=== PATIENT | female | born 1975 | race Caucasian/White ===

== ENCOUNTER 2017-12-06 17:12 | Inpatient (IN) | payer MEDICAID ==
[2017-12-06] MEDS ORDERED: TORADOL 30 MG VIAL IVP ONE (17:53)
[2017-12-06] MEDS ORDERED: PEPCID 20 MG IV PREMIX* 20 MG/50 ML BAG IV ONE ×2 (17:53→18:23)
--- NOTE | 2017-12-06 17:54 | ED.ABDFE ---
HPI - Time seen Time seen: 12:46 - PCP Primary Care Physician: RONIT - HPI Comment HPI Comment: HISTORY BELOW. - Complaint Chief Complaint Doctors Comments: EPIGASTRIC PAIN GOING TO THE BACK WITH N/V AND FEVER. HISTORY GALL STONE. CHEST PAIN RT CHEST GOING TO RT SHOULDER. PAIN NEW AND SEVERE. Chief Complaint:: PT. C/O SEVERE EPIGASTRIC PAIN THAT RADIATES THROUGH TO BACK. PT. ALSO C/O NAUSEA. - Nurses notes reviewed Nurses Notes Review: Yes - Source History Provided: Patient - Mode of arrival Mode of Arrival: Wheelchair - Timing Onset of Chief Complaint: 12/05/17 - Duration Duration: Days - Location Location: Epigastric - Severity Severity: Severe - Quality Quality: Sharp - Context Onset: Suddenly History of: Similar pain (dx) - Modifying Worsening Factors: Nothing Improving Factors: Nothing - Associated signs and symptoms Associated Signs and Symptoms: Nausea, Vomiting PMH - PMH Past Medical History: No Past Surgical History: Yes Surgical History: [employer] Surgery, Tonsillectomy Past Surgical History Comment: TUBAL LIGATION - Family History History of Family Medical Conditions: No - Social History Does patient currently use any type of tobacco product: Yes Have you used tobacco products in the last 12 months: Yes Type of Tobacco Use: Cigarettes Does any household member use tobacco: No Alcohol Use: None Do you use any recreational Drugs:: Yes (MARIJUANA) Lives With: Family Lives Where: Home - infectious screening In the last 2 months have you had wt loss of >10#?: NO Have you had fever, night sweats or hemotysis?: No Have you traveled outside the country in the last 6 months?: No Isolation: Standard ROS - Review of Systems Constitutional: No Symptoms Reported Eyes: No Symptoms Reported ENTM: No Symptoms Reported Respiratoy: Non-Productive Cough, Short of Breath Cardiovascular: No Symptoms Reported Gastrointestinal/Abdominal: Abdominal Pain (EPIGSTRIC), Nausea, Vomiting Genitourinary: No Symptoms Reported. negative: Dysuria, Frequency, Hematuria Neurological: No Symptoms Reported Musculoskeletal: Back Pain, Right, Shoulder Integumentary: No Symptoms Reported Hematologic/Lymphatic: No Symptoms Reported Endocrine: No Symptoms Reported All Other Systems: Reviewed and Negative PE - Vital Signs Vitals: Temperature 99.4 F Pulse Rate 114 Respiratory Rate 22 Blood Pressure 156/104 O2 Sat by Pulse Oximetry 100 - General Limitations: No Limitations General Appearance: Alert - Head Head Exam: Normal Inspection - Eyes Eye exam: Normal Appearance - ENT ENT Exam: Normal External Ear Exam - Neck Neck Exam: Trachea Midline - Chest Chest Inspection: Symmetric Chest Wall Rise - Respiratory Respiratory Exam: Normal Lung Sounds Bilat, Chest Wall Tenderness (RT CHEST WALL SORE. RT SHOULDER SORE) Respiratory Exam: Bilateral Clear to Auscultation - Cardiovascular Cardiovascular Exam: Regular Rate, Normal Rhythm, Normal Heart Sounds - Abdominal Exam Abdominal Exam: Normal Bowel Sounds, Soft, Tenderness Abdominal Tenderness: Epigastrium - Rectal Rectal Exam: Deferred - Back Back Exam: (R) CVA Tenderness - Extremeties Extremities Exam: Tenderness (RT SHOULDER SORENESS ON PALPATION.) - External Exam: Female: Deferred : Speculum Exam (Female): Deferred : Bimanual Exam (female): Deferred - Neurologic Neurological Exam: Alert, Oriented X3 - Psychiatric Psychiatric Exam: Anxious - Skin Skin Exam: Normal Color MDM - Additional Information Obtained From Additional information provided by: Family - Differential Diagnosis Differential Diagnosis- Considerations may include:: Angina/UT, Cholcystitis, Cholelethiasis, Pancreatitis, Urinary tract infection, Urolithiasis Other differential diagnosis: PULMONARY EMBOLISM Course - Treatment Treatment: SEE ORDERS. IV FLUIDS, IVPAIN MED AND IV ANTIBIOTIC IN ED. - Education/Counseling Education/Counseling: Patient, Education Educated On: Treatment, Diagnosis, Needs for Follow Up ROR - Labs Reviewed Laboratory Results Reviewed?: Yes Result Diagrams: 12/07/17 05:56 12/07/17 05:56 - XRAY XRAY Interpreted by: Radiologist XRAY Findings: REPORT DISCUSS WITH PATIENT. - Diagnosis Discharge Problem: Cholecystitis, Chest pain UTI (urinary tract infection) Qualifiers: Urinary tract infection type: site unspecified Hematuria presence: without hematuria Qualified Code(s): N39.0 - Urinary tract infection, site not specified - Discharge Plan Disposition: HOME, SELF-CARE Condition: Stable - Follow ups/Referrals - Instructions
[2017-12-06 18:14] LABS: BASOPHILS # (AUTO) 0.1 X10^3/uL (0.0-0.1); BASOPHILS % (AUTO) 0.5 % (0.2-1.0); EOSINOPHILS # (AUTO) 0.1 x10^3/uL (0.0-0.2); EOSINOPHILS % (AUTO) 0.9 % (0.9-2.9); HEMATOCRIT 39.4 % (36.0-47.0); HEMOGLOBIN 13.2 g/dL (12.0-16.0); LYMPHOCYTES # (AUTO) 1.7 X10^3/uL (1.3-2.9); LYMPHOCYTES % (AUTO) 13.9 % (21.0-51.0); MEAN CORPUSCULAR HEMOGLOBIN 28.4 pg (27.0-34.0); MEAN CORPUSCULAR HGB CONC 33.5 g/dL (33.0-35.0); MEAN CORPUSCULAR VOLUME 84.6 fL (80.0-100.0); MEAN PLATELET VOLUME 8.1 fL (7.4-11.0); MONOCYTES # (AUTO) 0.9 x10^3/uL (0.3-0.8); MONOCYTES % (AUTO) 7.3 % (0.0-13.0); NEUTROPHILS # (AUTO) 9.3 x10^3/uL (2.2-4.8); NEUTROPHILS % (AUTO) 77.4 % (42.0-75.0); PLATELET COUNT 245 X10^3/uL (150.0-450.0); RED BLOOD COUNT 4.66 X10^6/uL (3.5-5.4); RED CELL DISTRIBUTION WIDTH 14.2 % (11.6-16.5); WHITE BLOOD COUNT 11.9 X10^3/uL (3.6-10.0)
[2017-12-06] MEDS ORDERED: TORADOL 30 MG VIAL ONE (18:23)
[2017-12-06 18:27] LABS: BLOOD UREA NITROGEN 10 mg/dL (7-18); CALCIUM 9.2 mg/dL (8.5-10.1); CARBON DIOXIDE 31.4 mmol/L (21-32); CHLORIDE 99 mmol/L (98-107); CREATININE 0.62 mg/dL (0.55-1.02); SODIUM 136 mmol/L (136-145); TROPONIN I < 0.02 ng/mL (0-1.5); eGFR BLACK RACES > 60 (>60); eGFR NON BLACK RACES > 60 (>60)
[2017-12-06] MEDS ORDERED: ZOFRAN INJ 4 MG VIAL ONE (18:30)
[2017-12-06 18:31] LABS: ALANINE AMINOTRANSFERASE 128 Units/L (12-78); ALBUMIN 3.7 g/dL (3.4-5.0); ALKALINE PHOSPHATASE 120 Units/L (46-116); AMYLASE 41 Units/L (25-115); ASPARTATE AMINO TRANSFERASE 190 Units/L (15-37); CKMB % 2.4 % (<4); CREATINE KINASE 55 Units/L (26-192); CREATINE KINASE MB 1.3 ng/mL (0-4.0); LIPASE 130 Units/L (73-393); TOTAL PROTEIN 7.9 g/dL (6.4-8.2)
[2017-12-06] MEDS ORDERED: ZOFRAN INJ 4 MG VIAL IVP ONE (18:33)
[2017-12-06] MEDS: NS 1000 ML 1,000 ML IV SCH (18:34)
--- NOTE | 2017-12-06 21:15 | CT ---
HISTORY: Severe epigastric pain that radiates to the back. Study: CT chest with contrast Comparison: Chest x-ray dated same day. Technique: Multiple axial images of the chest were obtained from the thoracic inlet to the upper abdo men after the administration of IV contrast. MIP images were obtained. Dose reduction techniques incl uding Automated Exposure Control (AEC) and adjustment of mA and kV were utilized. Findings: Study slightly limited secondary to lung apices off the field of view. The mediastinum does not demonstrate significant pathological lymphadenopathy. There is no paracardi al effusion observed. The thoracic aorta is normal in its contour without evidence for aneurysmal di latation. The central pulmonary arterial system does not demonstrate central filling defects to sugg est pulmonary emboli. No obvious focal consolidation, pleural effusion, pneumothorax, pulmonary nodule, or mass. Marked thi ckening of the gallbladder wall with associated pericholecystic fluid. This most likely represents ac [place] cholecystitis. No obvious gallstones are seen. Remaining upper abdominal structures are unremarka ble. The osseous structures appear normal for age. IMPRESSION: 1. No CT evidence of acute thoracic pathology or pulmonary embolus. 2. Constellation of findings likely representing acute cholecystitis. Suggest right upper quadrant ul trasound for further characterization. Reported By:
--- NOTE | 2017-12-06 21:34 | RAD ---
HISTORY: 42-year-old female with chest pain. Study: Frontal view of the chest. Comparison: CTA chest this date. Findings: The trachea is midline. The cardiac silhouette is unremarkable. The lungs are clear without focal c onsolidation, effusion or pneumothorax. Soft tissues are unremarkable. Osseous structures are unrema rkable. IMPRESSION: 1. No acute cardiopulmonary disease. Reported By:
[2017-12-06] MEDS: DEMEROL INJ IVP PRN (22:08)
[2017-12-06] MEDS: PHENERGAN INJ 25 MG IV PRN (22:08)
[2017-12-06] MEDS ORDERED: PEPCID 20 MG IV PREMIX* 20 MG/50 ML BAG IV PRN (22:15)
[2017-12-06] MEDS: ZOSYN VIAL 3.375 GM 3.375 GM in NS 100 ML IV + SPIKE MINIBAG* 100 ML IV SCH (23:30)
--- NOTE | 2017-12-07 | US ---
HISTORY: Epigastric pain Study: Right upper quadrant abdominal ultrasound Comparison: CT chest from same day Technique: Multiple matias scale and color flow Doppler images of the right upper quadrant were obtaine d. Findings: The liver is normal in size and echotexture without visualized focal lesion. The main portal vein is patent with antegrade flow. There is a large shadowing stone within the gallbladder, which demonstrates moderate wall thickening/ edema and trace pericholecystic fluid. The common bile duct is normal in caliber, measuring 6 mm. A p ositive sonographic Dunn sign was elicited. The right kidney measures 4.7 x 6.1 x 11.7 cm and is normal in echogenicity without nephrolithiasis, mass or hydronephrosis. IMPRESSION: Acute cholecystitis. Reported By:
[2017-12-07] MEDS: PHENERGAN INJ 25 MG IV PRN (02:09)
[2017-12-07] MEDS: DEMEROL INJ IVP PRN ×4 (02:09→21:46)
[2017-12-07] MEDS: NS 1000 ML 1,000 ML IV SCH ×3 (02:10→20:09)
[2017-12-07] MEDS: ZOSYN VIAL 3.375 GM 3.375 GM in NS 100 ML IV + SPIKE MINIBAG* 100 ML IV SCH ×3 (05:41→20:59)
[2017-12-07 06:40] LABS: BASOPHILS % (AUTO) 0.2 % (0.2-1.0); EOSINOPHILS % (AUTO) 0.4 % (0.9-2.9); HEMATOCRIT 39.7 % (36.0-47.0); HEMOGLOBIN 13.2 g/dL (12.0-16.0); LYMPHOCYTES % (AUTO) 8.6 % (21.0-51.0); MEAN CORPUSCULAR HEMOGLOBIN 28.5 pg (27.0-34.0); MEAN CORPUSCULAR HGB CONC 33.2 g/dL (33.0-35.0); MEAN CORPUSCULAR VOLUME 85.9 fL (80.0-100.0); MEAN PLATELET VOLUME 8.9 fL (7.4-11.0); NEUTROPHILS # (AUTO) 9.8 x10^3/uL (2.2-4.8); NEUTROPHILS % (AUTO) 82.8 % (42.0-75.0); PLATELET COUNT 223 X10^3/uL (150.0-450.0); RED BLOOD COUNT 4.62 X10^6/uL (3.5-5.4); WHITE BLOOD COUNT 11.9 X10^3/uL (3.6-10.0)
[2017-12-07 06:42] LABS: ALANINE AMINOTRANSFERASE 276 Units/L (12-78); ALBUMIN 3.4 g/dL (3.4-5.0); ALKALINE PHOSPHATASE 162 Units/L (46-116); AMYLASE 40 Units/L (25-115); ASPARTATE AMINO TRANSFERASE 295 Units/L (15-37); BLOOD UREA NITROGEN 12 mg/dL (7-18); CALCIUM 9.1 mg/dL (8.5-10.1); CARBON DIOXIDE 29.9 mmol/L (21-32); CHLORIDE 100 mmol/L (98-107); CREATININE 0.77 mg/dL (0.55-1.02); LIPASE 136 Units/L (73-393); SODIUM 136 mmol/L (136-145); TOTAL PROTEIN 7.6 g/dL (6.4-8.2); eGFR BLACK RACES > 60 (>60); eGFR NON BLACK RACES > 60 (>60)
[2017-12-07] MEDS ORDERED: DILAUDID INJ IVP ONE (08:19)
[2017-12-07] MEDS ORDERED: DILAUDID INJ ONE ×3 (08:48→14:38)
[2017-12-07] MEDS ORDERED: LR 1000 ML IV 1,000 ML IV ONE ×2 (09:10→13:05)
[2017-12-07 09:31] LABS: BILIRUBIN,URINE NEGATIVE (NEGATIVE); BLOOD/HEMOGLOBIN,URINE 2+ (NEGATIVE); GLUCOSE, URINE NEGATIVE (NEGATIVE); KETONES,URINE NEGATIVE (NEGATIVE); LEUKOCYTE ESTERASE ,URINE 3+ (NEGATIVE); NITRITES,URINE POSITIVE (NEGATIVE); PROTEIN,URINE 2+ (NEGATIVE); UROBILINOGEN,URINE NORMAL (NORMAL)
[2017-12-07 09:39] LABS: APPEARANCE,URINE CLOUDY (CLEAR); COLOR,URINE DARK YELLOW (YELLOW)
[2017-12-07 09:40] LABS: BACTERIA,URINE 1+ /HPF (NEGATIVE); SQUAMOUS EPITHELIAL CELL,UR FEW /HPF (NEGATIVE); TRICHOMONAS,URINE FEW /HPF (NEGATIVE)
[2017-12-07] MEDS ORDERED: XYLOCAINE 1% and EPINEPHRINE 1:100,000 ONE (10:23)
[2017-12-07] MEDS ORDERED: MARCAINE 0.25% INJ ONE (10:24)
--- NOTE | 2017-12-07 10:37 | DR.H&P ---
H&P - History & Physical for Day of: H&P Date: 12/07/17 - Chief Complaint Chief Complaint: abdominal pain and chest pain, radiates to mid back - Allergies Allergies/Adverse Reactions: Allergies Allergy/AdvReac Type Severity Reaction Status Date / Time latex Allergy Verified 12/06/17 17:53 strawberry Allergy Verified 12/06/17 17:53 venlafaxine [From Effexor] Allergy Verified 12/06/17 17:53 - History of Present Illness History of Present Illness: 42F ER ADMISSION AFTER PRESENTING WITH CO CHEST PAIN RADIATES TO MID BACK AND SOB, PT HAD CTA CHEST AND ADMISSION LABS ED. PT HAS ACTUE CHOLECYSTITIS. PT ADMITTED FOR SURGICAL CONSULT AND PAIN CONTROL. PT DENIES ANY PMH, HTN OR DM - Past Medical History Past Medical History: denies: COPD, Coronary Artery Disease, Hypertension - Past Surgical History Surgical History: MILL HELPER Surgery, Tonsillectomy - Social History Does patient currently use any type of tobacco product: Yes Have you used tobacco products in the last 12 months: Yes Type of Tobacco Use: Cigarettes Does any household member use tobacco: No Alcohol Use: None Drug Use: Marijuana - Medications Home Medications: NK [NK] 12/07/17 [History Confirmed 12/07/17] - Review of Systems Constitutional: Fever, Chills Eyes: No Symptoms Reported ENT: No Symptoms Reported Respiratory: Shortness of Breath Cardiovascular: Chest Pain Gastrointestinal: Nausea, Abdominal Pain Genitourinary: No Symptoms Reported Musculoskeletal: Back Pain Skin: No Symptoms Reported Neurological: No Symptoms Reported - Physical Exam Vital Signs: Temperature 99.2 F Pulse Rate [Right] 122 Pulse Rate 114 Respiratory Rate 20 Blood Pressure [Left Arm] 158/92 Blood Pressure 156/104 O2 Sat by Pulse Oximetry 98 Oriented: Normal Eyes: Normal Ear: Normal Nose: Normal Throat: Normal Respiratory: Clear Throughout Cardiovascular: Normal : Normal Auscultation: Bowel Sounds: Normal Palpation: Normal Tenderness: RUQ, Epigastric Skin: Normal Musculoskeletal: Normal Psychiatric: Anxiety Speech Pattern: Clear, Appropriate - Assessment/Plan (1) Acute cholecystitis Status: Acute Plan: ADMIT, IV ATBX, PAIN AND NAUSEA CONTROL. NPO, SURGICAL CONSULT
[2017-12-07] MEDS ORDERED: FENTANYL INJ 250 mcg ONE (10:50)
[2017-12-07] MEDS ORDERED: NS IRRIGATION 3000 ML 3,000 ML IR ONE (11:15)
[2017-12-07] MEDS ORDERED: NS IRRIGATION 1000 ML 500 ML IR ONE (12:45)
[2017-12-07] MEDS ORDERED: NS IRRIGATION 1000 ML 1,000 ML with BACITRACIN VIAL 50,000 UNT IR ONE ×2 (12:45)
--- NOTE | 2017-12-07 13:02 | PCM.PROG ---
Progress Note - Progress Note for Day of Date: 12/07/17 - Subjective Subjective: NPO FOR TERESA LENTZ THIS AM - Past Medical Family Social History Past Med/Fam/Surg Hx: No changes since H&P Allergies: Allergies latex Allergy (Verified 12/06/17 17:53) strawberry Allergy (Verified 12/06/17 17:53) venlafaxine [From Effexor] Allergy (Verified 12/06/17 17:53) - Review of Systems ROS: No change since H&P - Vital Signs and I&O's Vital Signs: Temperature 99.2 F Pulse Rate [Right] 122 Pulse Rate 114 Respiratory Rate 20 Blood Pressure [Left Arm] 158/92 Blood Pressure 156/104 O2 Sat by Pulse Oximetry 98 Intake and Output: Intake & Output 12/05/17 12/06/17 12/07/17 12/08/17 11:59 11:59 11:59 11:59 Intake Total 50 Balance 50 - Physical Exam Oriented: Normal Eyes: Normal Ear: Normal Nose: Normal Throat: Normal Respiratory: Normal Cardiovascular: Tachycardia : Normal Auscultation: Bowel Sounds: Normal Tenderness: RUQ, Epigastric Skin: Normal Musculoskeletal: Normal Psychiatric: Anxiety Speech Pattern: Clear, Appropriate - Laboratory and Diagnostics Result Diagrams: 12/07/17 05:56 12/07/17 05:56 Labs: Laboratory WBC 11.9 X10^3/uL (3.6-10.0) H 12/07/17 05:56 RBC 4.62 X10^6/uL (3.5-5.4) 12/07/17 05:56 Hgb 13.2 g/dL (12.0-16.0) 12/07/17 05:56 Hct 39.7 % (36.0-47.0) 12/07/17 05:56 MCV 85.9 fL (80.0-100.0) 12/07/17 05:56 MCH 28.5 pg (27.0-34.0) 12/07/17 05:56 MCHC 33.2 g/dL (33.0-35.0) 12/07/17 05:56 RDW 14.0 % (11.6-16.5) 12/07/17 05:56 Plt Count 223 X10^3/uL (150.0-450.0) 12/07/17 05:56 MPV 8.9 fL (7.4-11.0) 12/07/17 05:56 Neut % 82.8 % (42.0-75.0) H 12/07/17 05:56 Lymph % 8.6 % (21.0-51.0) L 12/07/17 05:56 [place] % 8.0 % (0.0-13.0) 12/07/17 05:56 Eos % 0.4 % (0.9-2.9) L 12/07/17 05:56 Baso % 0.2 % (0.2-1.0) 12/07/17 05:56 Neut # 9.8 x10^3/uL (2.2-4.8) H 12/07/17 05:56 Lymph # 1.0 X10^3/uL (1.3-2.9) L 12/07/17 05:56 [place] # 1.0 x10^3/uL (0.3-0.8) H 12/07/17 05:56 Eos # 0.0 x10^3/uL (0.0-0.2) 12/07/17 05:56 Baso # 0.0 X10^3/uL (0.0-0.1) 12/07/17 05:56 Absolute Nucleated RBC 0.1 /100WBC 12/07/17 05:56 D-Dimer 630 ng/mL (0-400) H* 12/06/17 18:00 Sodium 136 mmol/L (136-145) 12/07/17 05:56 Corrected Sodium TNP 12/07/17 05:56 Potassium 4.9 mmol/L (3.5-5.1) 12/07/17 05:56 Chloride 100 mmol/L (98-107) 12/07/17 05:56 Carbon Dioxide 29.9 mmol/L (21-32) 12/07/17 05:56 BUN 12 mg/dL (7-18) 12/07/17 05:56 Creatinine 0.77 mg/dL (0.55-1.02) 12/07/17 05:56 Est GFR (MDRD) Af Amer > 60 (>60) 12/07/17 05:56 Est GFR (MDRD) Non-Af > 60 (>60) 12/07/17 05:56 Glucose 108 mg/dL (65-99) H 12/07/17 05:56 Calcium 9.1 mg/dL (8.5-10.1) 12/07/17 05:56 Corrected Calcium TNP 12/07/17 05:56 Total Bilirubin 0.90 mg/dL (0.2-1.0) 12/07/17 05:56 AST 295 Units/L (15-37) H 12/07/17 05:56 ALT 276 Units/L (12-78) H 12/07/17 05:56 Alkaline Phosphatase 162 Units/L (46-116) H 12/07/17 05:56 Creatine Kinase 55 Units/L (26-192) 12/06/17 18:00 CK-MB (CK-2) 1.3 ng/mL (0-4.0) 12/06/17 18:00 CK/CKMB % Calc 2.4 % (<4) 12/06/17 18:00 Troponin I < 0.02 ng/mL (0-1.5) 12/06/17 18:00 Total Protein 7.6 g/dL (6.4-8.2) 12/07/17 05:56 Albumin 3.4 g/dL (3.4-5.0) 12/07/17 05:56 Globulin 4.2 g/dL (2.5-4.5) 12/07/17 05:56 Albumin/Globulin Ratio 0.8 Ratio (1.1-2.1) L 12/07/17 05:56 Amylase 40 Units/L (25-115) 12/07/17 05:56 Lipase 136 Units/L (73-393) 12/07/17 05:56 Specimen Type Random urine 12/07/17 08:55 Urine Color Dark yellow (YELLOW) 12/07/17 08:55 Urine Appearance Cloudy (CLEAR) 12/07/17 08:55 Urine pH 7.0 (5.0 - 8.0) 12/07/17 08:55 Ur Specific [place] 1.010 (1.000-1.030) 12/07/17 08:55 Urine Protein 2+ (NEGATIVE) 12/07/17 08:55 Urine Glucose (UA) Negative (NEGATIVE) 12/07/17 08:55 Urine Ketones Negative (NEGATIVE) 12/07/17 08:55 Urine Occult Blood 2+ (NEGATIVE) 12/07/17 08:55 Urine Nitrite Positive (NEGATIVE) 12/07/17 08:55 Urine Bilirubin Negative (NEGATIVE) 12/07/17 08:55 Urine Urobilinogen Normal (NORMAL) 12/07/17 08:55 Ur Leukocyte Esterase 3+ (NEGATIVE) 12/07/17 08:55 Urine RBC 10-20 /HPF (NEGATIVE) 12/07/17 08:55 Urine WBC 30-50 /HPF (NEGATIVE) 12/07/17 08:55 Ur Squamous Epith Cells Few /HPF (NEGATIVE) 12/07/17 08:55 Urine Bacteria 1+ /HPF (NEGATIVE) 12/07/17 08:55 Urine Trichomonas Few /HPF (NEGATIVE) 12/07/17 08:55 Ur Culture Indicated? Yes/culture set up 12/07/17 08:55 - Plan (1) Acute cholecystitis Status: Acute Plan: IV ATBX, PAIN AND NAUSEA CONTROL. NPO, SURGICAL CONSULT
[2017-12-07] MEDS ORDERED: LEVAQUIN PREMIX IV 500 MG 500 MG/100 ML BAG IV ONE (13:08)
[2017-12-07] MEDS ORDERED: BACITRACIN VIAL ONE (13:54)
[2017-12-07] MEDS ORDERED: BENADRYL INJ 50 MG VIAL IVP PRN (14:01)
[2017-12-07] MEDS ORDERED: PHENERGAN INJ 25 MG IVP PRN (14:01)
[2017-12-07] MEDS ORDERED: REGLAN INJ 10 MG VIAL IVP PRN (14:01)
[2017-12-07] MEDS ORDERED: ZOFRAN INJ 4 MG VIAL IVP PRN (14:01)
[2017-12-07] MEDS ORDERED: BACTROBAN OINT ONE (14:07)
[2017-12-07] MEDS: DILAUDID INJ IVP PRN ×3 (14:38→14:49)
[2017-12-07] MEDS ORDERED: SUPRANE IN ONE (14:40)
[2017-12-07] MEDS ORDERED: REGLAN INJ 10 MG VIAL ONE (14:40)
[2017-12-07] MEDS ORDERED: XYLOCAINE 2 % (PLAIN) ONE (14:40)
[2017-12-07] MEDS ORDERED: NORCURON INJ 10 MG VIAL ONE (14:40)
[2017-12-07] MEDS ORDERED: DIPRIVAN VIAL ONE (14:40)
[2017-12-07] MEDS ORDERED: VERSED ONE (14:40)
[2017-12-07] MEDS ORDERED: NEOSTIGMINE INJ ONE (14:40)
[2017-12-07] MEDS ORDERED: ZOFRAN INJ 4 MG VIAL ONE (14:40)
[2017-12-07] MEDS ORDERED: QUELICIN (OR ANECTINE) ONE (14:40)
[2017-12-07] MEDS ORDERED: ZOFRAN INJ 4 MG VIAL IV PRN (14:44)
[2017-12-07] MEDS: LEVAQUIN PREMIX IV 750 MG 750 MG/150 ML BAG IV SCH (15:32)
[2017-12-07] MEDS: D5 1/2 NS 1000 ML 1,000 ML IV SCH ×2 (16:18→23:52)
[2017-12-07] MEDS ORDERED: NS 500 ML IV 500 ML IV ONE (16:23)
--- NOTE | 2017-12-07 16:28 | OR.GENERIC ---
Post-Op Note Generic - Post-Op Note Operative Report: PO note Pt underwent Diagnostic Laparoscopy , Intra operative cholangiogram ,then exploratory laparatomy , CBD exploration placement of T-T and T-T tube cholangiogram .. finding : acute cholecystitis with Hydrops of the GB and impacted large stone in the neck of the GB.. the GB was attached to the CBD with no significant cystic duct and almost eroded into the CBD Had to open and finish the cholecystectomy , explore the CBD and place T-Tube the cholangiogram wsa good .. see OR report . will keep on IV ATB , DVT prophylaxis , IVF and keep T-T for 4 weeks at least .. see OR report.
[2017-12-07] MEDS: MORPHINE SULFATE PCA 30 MG IVP PRN ×2 (17:48→23:55)
[2017-12-07] MEDS: PEPCID 20 MG IV PREMIX* 20 MG/50 ML BAG IV SCH (20:59)
[2017-12-08] MEDS: NS 1000 ML 1,000 ML IV SCH ×4 (02:03→19:18)
[2017-12-08] MEDS: ZOSYN VIAL 3.375 GM 3.375 GM in NS 100 ML IV + SPIKE MINIBAG* 100 ML IV SCH ×3 (05:43→23:53)
[2017-12-08 06:28] LABS: BASOPHILS % (AUTO) 0.1 % (0.2-1.0); EOSINOPHILS % (AUTO) 0.4 % (0.9-2.9); HEMATOCRIT 32.7 % (36.0-47.0); HEMOGLOBIN 10.9 g/dL (12.0-16.0); LYMPHOCYTES # (AUTO) 0.9 X10^3/uL (1.3-2.9); LYMPHOCYTES % (AUTO) 7.8 % (21.0-51.0); MEAN CORPUSCULAR HEMOGLOBIN 28.7 pg (27.0-34.0); MEAN CORPUSCULAR HGB CONC 33.2 g/dL (33.0-35.0); MEAN CORPUSCULAR VOLUME 86.3 fL (80.0-100.0); MEAN PLATELET VOLUME 8.6 fL (7.4-11.0); MONOCYTES # (AUTO) 1.1 x10^3/uL (0.3-0.8); MONOCYTES % (AUTO) 9.4 % (0.0-13.0); NEUTROPHILS # (AUTO) 9.2 x10^3/uL (2.2-4.8); NEUTROPHILS % (AUTO) 82.3 % (42.0-75.0); PLATELET COUNT 190 X10^3/uL (150.0-450.0); RED BLOOD COUNT 3.78 X10^6/uL (3.5-5.4); RED CELL DISTRIBUTION WIDTH 14.2 % (11.6-16.5); WHITE BLOOD COUNT 11.2 X10^3/uL (3.6-10.0)
[2017-12-08 06:50] LABS: ALANINE AMINOTRANSFERASE 244 Units/L (12-78); ALBUMIN 2.5 g/dL (3.4-5.0); ALKALINE PHOSPHATASE 159 Units/L (46-116); ASPARTATE AMINO TRANSFERASE 142 Units/L (15-37); BLOOD UREA NITROGEN 14 mg/dL (7-18); CALCIUM 8.5 mg/dL (8.5-10.1); CARBON DIOXIDE 25.5 mmol/L (21-32); CHLORIDE 100 mmol/L (98-107); COR CA(FOR HYPOALB) 9.7 mg/dL (8.5-10.1); COR NA(FOR HYPERGLY) 134 mmol/L (136-145); CREATININE 0.69 mg/dL (0.55-1.02); SODIUM 133 mmol/L (136-145); TOTAL PROTEIN 6.4 g/dL (6.4-8.2); eGFR BLACK RACES > 60 (>60); eGFR NON BLACK RACES > 60 (>60)
[2017-12-08] MEDS: D5 1/2 NS 1000 ML 1,000 ML IV SCH ×3 (09:33→23:53)
[2017-12-08] MEDS: LEVAQUIN PREMIX IV 750 MG 750 MG/150 ML BAG IV SCH (09:34)
[2017-12-08] MEDS: PEPCID 20 MG IV PREMIX* 20 MG/50 ML BAG IV SCH ×2 (09:34→21:00)
[2017-12-08] MEDS: LOVENOX INJ 30 MG SYR SC SCH ×2 (09:35→21:00)
--- NOTE | 2017-12-08 10:07 | PCM.PROG ---
Progress Note - Progress Note for Day of Date: 12/08/17 - Subjective Subjective: P/O Diagnostic laparoscopy , exploratory laparatomy , cholecystectomy , CBD exploration , placement of T-T and cholangiogram for acute calculus cholecystitis with hydrops of the GB partially eroding into the CBD . Pt is doing very well today with clear bile in the T-T bag .. C/O incisional pain - Past Medical Family Social History Past Med/Fam/Surg Hx: No changes since H&P Allergies: Allergies latex Allergy (Verified 12/06/17 17:53) strawberry Allergy (Verified 12/06/17 17:53) venlafaxine [From Effexor] Allergy (Verified 12/06/17 17:53) - Review of Systems ROS: No change since H&P - Vital Signs and I&O's Vital Signs: Temperature 99.8 F Pulse Rate [Right] 122 Pulse Rate 120 Respiratory Rate 18 Blood Pressure [Left Arm] 128/69 Blood Pressure 137/86 O2 Sat by Pulse Oximetry 95 Intake and Output: Intake & Output 12/05/17 12/06/17 12/07/17 12/08/17 11:59 11:59 11:59 11:59 Intake Total 50 2132 Output Total 2830 Balance 50 -698 - Physical Exam Oriented: Normal Eyes: Normal Ear: Normal Nose: Normal Throat: Normal Respiratory: Normal Cardiovascular: Tachycardia : Normal Auscultation: Bowel Sounds: Normal Tenderness: RUQ, Epigastric, Other (T-T bag is draing about 200 cc..no bile in NICK drain ) Skin: Normal Musculoskeletal: Normal Psychiatric: Anxiety Mood Description: Calm Speech Pattern: Clear, Appropriate - Laboratory and Diagnostics Result Diagrams: 12/08/17 05:55 12/08/17 05:55 Labs: 12/07/17 12:50 Abdomen Gram Stain - Final 12/07/17 12:50 Gallbladder Gram Stain - Final Laboratory WBC 11.2 X10^3/uL (3.6-10.0) H 12/08/17 05:55 RBC 3.78 X10^6/uL (3.5-5.4) 12/08/17 05:55 Hgb 10.9 g/dL (12.0-16.0) L D 12/08/17 05:55 Hct 32.7 % (36.0-47.0) L 12/08/17 05:55 MCV 86.3 fL (80.0-100.0) 12/08/17 05:55 MCH 28.7 pg (27.0-34.0) 12/08/17 05:55 MCHC 33.2 g/dL (33.0-35.0) 12/08/17 05:55 RDW 14.2 % (11.6-16.5) 12/08/17 05:55 Plt Count 190 X10^3/uL (150.0-450.0) 12/08/17 05:55 MPV 8.6 fL (7.4-11.0) 12/08/17 05:55 Neut % 82.3 % (42.0-75.0) H 12/08/17 05:55 Lymph % 7.8 % (21.0-51.0) L 12/08/17 05:55 [place] % 9.4 % (0.0-13.0) 12/08/17 05:55 Eos % 0.4 % (0.9-2.9) L 12/08/17 05:55 Baso % 0.1 % (0.2-1.0) L 12/08/17 05:55 Neut # 9.2 x10^3/uL (2.2-4.8) H 12/08/17 05:55 Lymph # 0.9 X10^3/uL (1.3-2.9) L 12/08/17 05:55 [place] # 1.1 x10^3/uL (0.3-0.8) H 12/08/17 05:55 Eos # 0.0 x10^3/uL (0.0-0.2) 12/08/17 05:55 Baso # 0.0 X10^3/uL (0.0-0.1) 12/08/17 05:55 Absolute Nucleated RBC 0.0 /100WBC 12/08/17 05:55 D-Dimer 630 ng/mL (0-400) H* 12/06/17 18:00 Sodium 133 mmol/L (136-145) L 12/08/17 05:55 Corrected Sodium 134 mmol/L (136-145) L 12/08/17 05:55 Potassium 4.2 mmol/L (3.5-5.1) 12/08/17 05:55 Chloride 100 mmol/L (98-107) 12/08/17 05:55 Carbon Dioxide 25.5 mmol/L (21-32) 12/08/17 05:55 BUN 14 mg/dL (7-18) 12/08/17 05:55 Creatinine 0.69 mg/dL (0.55-1.02) 12/08/17 05:55 Est GFR (MDRD) Af Amer > 60 (>60) 12/08/17 05:55 Est GFR (MDRD) Non-Af > 60 (>60) 12/08/17 05:55 Glucose 127 mg/dL (65-99) H 12/08/17 05:55 Calcium 8.5 mg/dL (8.5-10.1) 12/08/17 05:55 Corrected Calcium 9.7 mg/dL (8.5-10.1) 12/08/17 05:55 Total Bilirubin 1.20 mg/dL (0.2-1.0) H 12/08/17 05:55 AST 142 Units/L (15-37) H 12/08/17 05:55 ALT 244 Units/L (12-78) H 12/08/17 05:55 Alkaline Phosphatase 159 Units/L (46-116) H 12/08/17 05:55 Creatine Kinase 55 Units/L (26-192) 12/06/17 18:00 CK-MB (CK-2) 1.3 ng/mL (0-4.0) 12/06/17 18:00 CK/CKMB % Calc 2.4 % (<4) 12/06/17 18:00 Troponin I < 0.02 ng/mL (0-1.5) 12/06/17 18:00 Total Protein 6.4 g/dL (6.4-8.2) 12/08/17 05:55 Albumin 2.5 g/dL (3.4-5.0) L 12/08/17 05:55 Globulin 3.9 g/dL (2.5-4.5) 12/08/17 05:55 Albumin/Globulin Ratio 0.6 Ratio (1.1-2.1) L 12/08/17 05:55 Amylase 40 Units/L (25-115) 12/07/17 05:56 Lipase 136 Units/L (73-393) 12/07/17 05:56 Specimen Type Random urine 12/07/17 08:55 Urine Color Dark yellow (YELLOW) 12/07/17 08:55 Urine Appearance Cloudy (CLEAR) 12/07/17 08:55 Urine pH 7.0 (5.0 - 8.0) 12/07/17 08:55 Ur Specific [place] 1.010 (1.000-1.030) 12/07/17 08:55 Urine Protein 2+ (NEGATIVE) 12/07/17 08:55 Urine Glucose (UA) Negative (NEGATIVE) 12/07/17 08:55 Urine Ketones Negative (NEGATIVE) 12/07/17 08:55 Urine Occult Blood 2+ (NEGATIVE) 12/07/17 08:55 Urine Nitrite Positive (NEGATIVE) 12/07/17 08:55 Urine Bilirubin Negative (NEGATIVE) 12/07/17 08:55 Urine Urobilinogen Normal (NORMAL) 12/07/17 08:55 Ur Leukocyte Esterase 3+ (NEGATIVE) 12/07/17 08:55 Urine RBC 10-20 /HPF (NEGATIVE) 12/07/17 08:55 Urine WBC 30-50 /HPF (NEGATIVE) 12/07/17 08:55 Ur Squamous Epith Cells Few /HPF (NEGATIVE) 12/07/17 08:55 Urine Bacteria 1+ /HPF (NEGATIVE) 12/07/17 08:55 Urine Trichomonas Few /HPF (NEGATIVE) 12/07/17 08:55 Ur Culture Indicated? Yes/culture set up 12/07/17 08:55 Tissue Pathology To follow 12/07/17 13:43 - Plan (1) Acute suppurative cholecystitis Status: Acute (2) Acute hydrops of gallbladder Status: Acute (3) Acute cholangitis due to calculus of bile duct with obstruction Status: Acute Plan: on IV ATB ,IVF ,. will D/C NGT and start on liquid diet. OOB , incintive spirometer ,DVT prophylaxis
[2017-12-08 11:46] LABS: ALANINE AMINOTRANSFERASE 212 Units/L (12-78); ALBUMIN 2.4 g/dL (3.4-5.0); ALKALINE PHOSPHATASE 150 Units/L (46-116); ASPARTATE AMINO TRANSFERASE 109 Units/L (15-37); BLOOD UREA NITROGEN 13 mg/dL (7-18); CALCIUM 8.2 mg/dL (8.5-10.1); CARBON DIOXIDE 26.8 mmol/L (21-32); CHLORIDE 100 mmol/L (98-107); COR CA(FOR HYPOALB) 9.5 mg/dL (8.5-10.1); CREATININE 0.71 mg/dL (0.55-1.02); SODIUM 133 mmol/L (136-145); TOTAL PROTEIN 6.4 g/dL (6.4-8.2); eGFR BLACK RACES > 60 (>60); eGFR NON BLACK RACES > 60 (>60)
[2017-12-08] MEDS: MORPHINE SULFATE PCA 30 MG IVP PRN ×2 (12:30→18:50)
[2017-12-08] MEDS ORDERED: BUTT CREAM (COMPOUND) ONE (15:34)
[2017-12-08] MEDS: SILVADENE TOP SCH (21:00)
[2017-12-09] MEDS: D5 1/2 NS 1000 ML 1,000 ML IV SCH ×4 (00:10→23:50)
[2017-12-09] MEDS: TYLENOL 325 MG TAB PO PRN ×2 (00:10→22:25)
[2017-12-09] MEDS: ZOSYN VIAL 3.375 GM 3.375 GM in NS 100 ML IV + SPIKE MINIBAG* 100 ML IV SCH ×3 (06:00→21:59)
[2017-12-09] MEDS: NS 1000 ML 1,000 ML IV SCH ×3 (06:03→21:57)
[2017-12-09 06:49] LABS: BASOPHILS % (AUTO) 0.1 % (0.2-1.0); EOSINOPHILS # (AUTO) 0.1 x10^3/uL (0.0-0.2); EOSINOPHILS % (AUTO) 1.3 % (0.9-2.9); HEMATOCRIT 31.5 % (36.0-47.0); HEMOGLOBIN 10.5 g/dL (12.0-16.0); LYMPHOCYTES # (AUTO) 1.1 X10^3/uL (1.3-2.9); LYMPHOCYTES % (AUTO) 14.2 % (21.0-51.0); MEAN CORPUSCULAR HEMOGLOBIN 28.8 pg (27.0-34.0); MEAN CORPUSCULAR HGB CONC 33.4 g/dL (33.0-35.0); MEAN CORPUSCULAR VOLUME 86.2 fL (80.0-100.0); MEAN PLATELET VOLUME 8.9 fL (7.4-11.0); MONOCYTES % (AUTO) 12.4 % (0.0-13.0); NEUTROPHILS # (AUTO) 5.5 x10^3/uL (2.2-4.8); PLATELET COUNT 186 X10^3/uL (150.0-450.0); RED BLOOD COUNT 3.66 X10^6/uL (3.5-5.4); RED CELL DISTRIBUTION WIDTH 14.1 % (11.6-16.5); WHITE BLOOD COUNT 7.7 X10^3/uL (3.6-10.0)
[2017-12-09 06:59] LABS: ALANINE AMINOTRANSFERASE 140 Units/L (12-78); ALBUMIN 2.3 g/dL (3.4-5.0); ALKALINE PHOSPHATASE 128 Units/L (46-116); ASPARTATE AMINO TRANSFERASE 62 Units/L (15-37); BLOOD UREA NITROGEN 10 mg/dL (7-18); CALCIUM 8.7 mg/dL (8.5-10.1); CHLORIDE 98 mmol/L (98-107); COR CA(FOR HYPOALB) 10.1 mg/dL (8.5-10.1); CREATININE 0.58 mg/dL (0.55-1.02); SODIUM 131 mmol/L (136-145); TOTAL PROTEIN 6.6 g/dL (6.4-8.2); eGFR BLACK RACES > 60 (>60); eGFR NON BLACK RACES > 60 (>60)
[2017-12-09] MEDS: PEPCID 20 MG IV PREMIX* 20 MG/50 ML BAG IV SCH ×2 (09:05→21:58)
[2017-12-09] MEDS: LEVAQUIN PREMIX IV 750 MG 750 MG/150 ML BAG IV SCH (09:05)
[2017-12-09] MEDS: LOVENOX INJ 30 MG SYR SC SCH ×2 (09:08→21:58)
[2017-12-09] MEDS: SILVADENE TOP SCH ×2 (09:09→21:59)
--- NOTE | 2017-12-09 11:01 | PCM.PROG ---
Progress Note - Progress Note for Day of Date: 12/09/17 - Subjective Subjective: P/O Diagnostic laparoscopy , exploratory laparatomy , cholecystectomy , CBD exploration , placement of T-T and cholangiogram for acute calculus cholecystitis with hydrops of the GB partially eroding into the CBD and causing cholangitis ; cloudy bile and sludge in the CBD.. doing fairly well today .. still with incisional pain ... lab values are almost normal. no bile in the NICK. no new c/o. - Past Medical Family Social History Past Med/Fam/Surg Hx: No changes since H&P Allergies: Allergies latex Allergy (Verified 12/06/17 17:53) strawberry Allergy (Verified 12/06/17 17:53) venlafaxine [From Effexor] Allergy (Verified 12/06/17 17:53) - Review of Systems ROS: No change since H&P - Vital Signs and I&O's Vital Signs: Temperature 99 F Pulse Rate [Right] 104 Pulse Rate 120 Respiratory Rate 12 Blood Pressure [Left Arm] 127/79 Blood Pressure 137/86 O2 Sat by Pulse Oximetry 100 Intake and Output: Intake & Output 12/06/17 12/07/17 12/08/17 12/09/17 11:59 11:59 11:59 11:59 Intake Total 50 2132 3190 Output Total 2830 1080 Balance 50 -698 2110 - Physical Exam Oriented: Normal Eyes: Normal Ear: Normal Nose: Normal Throat: Normal Respiratory: Normal Cardiovascular: Tachycardia : Normal Auscultation: Bowel Sounds: Normal Tenderness: RUQ, Epigastric, Other (soft abdomen BS+..T-T bag is draing about 200 cc..no bile in NICK drain ) Skin: Normal Musculoskeletal: Normal Psychiatric: Anxiety Mood Description: Calm Speech Pattern: Clear, Appropriate - Laboratory and Diagnostics Result Diagrams: 12/09/17 05:35 12/09/17 05:35 Labs: 12/07/17 12:50 Gallbladder Gram Stain - Final 12/07/17 12:50 Gallbladder Wound Culture - Final Staphylococcus Aureus 12/07/17 12:50 Abdomen Gram Stain - Final 12/07/17 12:50 Abdomen Wound Culture - Final Staphylococcus Aureus 12/07/17 08:55 Urine,Random Urine Culture - Final Laboratory WBC 7.7 X10^3/uL (3.6-10.0) 12/09/17 05:35 RBC 3.66 X10^6/uL (3.5-5.4) 12/09/17 05:35 Hgb 10.5 g/dL (12.0-16.0) L 12/09/17 05:35 Hct 31.5 % (36.0-47.0) L 12/09/17 05:35 MCV 86.2 fL (80.0-100.0) 12/09/17 05:35 MCH 28.8 pg (27.0-34.0) 12/09/17 05:35 MCHC 33.4 g/dL (33.0-35.0) 12/09/17 05:35 RDW 14.1 % (11.6-16.5) 12/09/17 05:35 Plt Count 186 X10^3/uL (150.0-450.0) 12/09/17 05:35 MPV 8.9 fL (7.4-11.0) 12/09/17 05:35 Neut % 72.0 % (42.0-75.0) 12/09/17 05:35 Lymph % 14.2 % (21.0-51.0) L 12/09/17 05:35 [place] % 12.4 % (0.0-13.0) 12/09/17 05:35 Eos % 1.3 % (0.9-2.9) 12/09/17 05:35 Baso % 0.1 % (0.2-1.0) L 12/09/17 05:35 Neut # 5.5 x10^3/uL (2.2-4.8) H 12/09/17 05:35 Lymph # 1.1 X10^3/uL (1.3-2.9) L 12/09/17 05:35 [place] # 1.0 x10^3/uL (0.3-0.8) H 12/09/17 05:35 Eos # 0.1 x10^3/uL (0.0-0.2) 12/09/17 05:35 Baso # 0.0 X10^3/uL (0.0-0.1) 12/09/17 05:35 Absolute Nucleated RBC 0.0 /100WBC 12/09/17 05:35 D-Dimer 630 ng/mL (0-400) H* 12/06/17 18:00 Sodium 131 mmol/L (136-145) L 12/09/17 05:35 Corrected Sodium TNP 12/09/17 05:35 Potassium 4.0 mmol/L (3.5-5.1) 12/09/17 05:35 Chloride 98 mmol/L (98-107) 12/09/17 05:35 Carbon Dioxide 28.0 mmol/L (21-32) 12/09/17 05:35 BUN 10 mg/dL (7-18) 12/09/17 05:35 Creatinine 0.58 mg/dL (0.55-1.02) 12/09/17 05:35 Est GFR (MDRD) Af Amer > 60 (>60) 12/09/17 05:35 Est GFR (MDRD) Non-Af > 60 (>60) 12/09/17 05:35 Glucose 103 mg/dL (65-99) H 12/09/17 05:35 Calcium 8.7 mg/dL (8.5-10.1) 12/09/17 05:35 Corrected Calcium 10.1 mg/dL (8.5-10.1) 12/09/17 05:35 Total Bilirubin 0.70 mg/dL (0.2-1.0) 12/09/17 05:35 AST 62 Units/L (15-37) H 12/09/17 05:35 ALT 140 Units/L (12-78) H 12/09/17 05:35 Alkaline Phosphatase 128 Units/L (46-116) H 12/09/17 05:35 Creatine Kinase 55 Units/L (26-192) 12/06/17 18:00 CK-MB (CK-2) 1.3 ng/mL (0-4.0) 12/06/17 18:00 CK/CKMB % Calc 2.4 % (<4) 12/06/17 18:00 Troponin I < 0.02 ng/mL (0-1.5) 12/06/17 18:00 Total Protein 6.6 g/dL (6.4-8.2) 12/09/17 05:35 Albumin 2.3 g/dL (3.4-5.0) L 12/09/17 05:35 Globulin 4.3 g/dL (2.5-4.5) 12/09/17 05:35 Albumin/Globulin Ratio 0.5 Ratio (1.1-2.1) L 12/09/17 05:35 Amylase 40 Units/L (25-115) 12/07/17 05:56 Lipase 136 Units/L (73-393) 12/07/17 05:56 Specimen Type Random urine 12/07/17 08:55 Urine Color Dark yellow (YELLOW) 12/07/17 08:55 Urine Appearance Cloudy (CLEAR) 12/07/17 08:55 Urine pH 7.0 (5.0 - 8.0) 12/07/17 08:55 Ur Specific [place] 1.010 (1.000-1.030) 12/07/17 08:55 Urine Protein 2+ (NEGATIVE) 12/07/17 08:55 Urine Glucose (UA) Negative (NEGATIVE) 12/07/17 08:55 Urine Ketones Negative (NEGATIVE) 12/07/17 08:55 Urine Occult Blood 2+ (NEGATIVE) 12/07/17 08:55 Urine Nitrite Positive (NEGATIVE) 12/07/17 08:55 Urine Bilirubin Negative (NEGATIVE) 12/07/17 08:55 Urine Urobilinogen Normal (NORMAL) 12/07/17 08:55 Ur Leukocyte Esterase 3+ (NEGATIVE) 12/07/17 08:55 Urine RBC 10-20 /HPF (NEGATIVE) 12/07/17 08:55 Urine WBC 30-50 /HPF (NEGATIVE) 12/07/17 08:55 Ur Squamous Epith Cells Few /HPF (NEGATIVE) 12/07/17 08:55 Urine Bacteria 1+ /HPF (NEGATIVE) 12/07/17 08:55 Urine Trichomonas Few /HPF (NEGATIVE) 12/07/17 08:55 Ur Culture Indicated? Yes/culture set up 12/07/17 08:55 Tissue Pathology To follow 12/07/17 13:43 - Plan (1) Acute suppurative cholecystitis Status: Acute (2) Acute hydrops of gallbladder Status: Acute (3) Acute cholangitis due to calculus of bile duct with obstruction Status: Acute Plan: on IV ATB ,IVF ,. start on low fat diet. OOB , incintive spirometer , DVT prophylaxis
[2017-12-09] MEDS: PERCOCET TAB 5/325 MG PO PRN (15:41)
[2017-12-09] MEDS: COLACE CAP 100 MG PO SCH ×2 (15:48→21:58)
[2017-12-09] MEDS: MILK OF MAGNESIA PO SCH ×2 (15:48→21:58)
[2017-12-10] MEDS: MORPHINE SULFATE PCA 30 MG IVP PRN (06:00)
[2017-12-10 06:27] LABS: BASOPHILS % (AUTO) 0.3 % (0.2-1.0); EOSINOPHILS # (AUTO) 0.1 x10^3/uL (0.0-0.2); EOSINOPHILS % (AUTO) 1.8 % (0.9-2.9); HEMATOCRIT 27.6 % (36.0-47.0); HEMOGLOBIN 9.4 g/dL (12.0-16.0); LYMPHOCYTES # (AUTO) 0.9 X10^3/uL (1.3-2.9); LYMPHOCYTES % (AUTO) 16.8 % (21.0-51.0); MEAN CORPUSCULAR HEMOGLOBIN 29.1 pg (27.0-34.0); MEAN CORPUSCULAR HGB CONC 33.9 g/dL (33.0-35.0); MEAN CORPUSCULAR VOLUME 85.8 fL (80.0-100.0); MEAN PLATELET VOLUME 8.3 fL (7.4-11.0); MONOCYTES # (AUTO) 0.7 x10^3/uL (0.3-0.8); MONOCYTES % (AUTO) 13.2 % (0.0-13.0); NEUTROPHILS # (AUTO) 3.6 x10^3/uL (2.2-4.8); NEUTROPHILS % (AUTO) 67.9 % (42.0-75.0); PLATELET COUNT 189 X10^3/uL (150.0-450.0); RED BLOOD COUNT 3.22 X10^6/uL (3.5-5.4); RED CELL DISTRIBUTION WIDTH 13.9 % (11.6-16.5); WHITE BLOOD COUNT 5.3 X10^3/uL (3.6-10.0)
[2017-12-10 06:29] LABS: ALANINE AMINOTRANSFERASE 87 Units/L (12-78); ALBUMIN 2.1 g/dL (3.4-5.0); ALKALINE PHOSPHATASE 96 Units/L (46-116); ASPARTATE AMINO TRANSFERASE 30 Units/L (15-37); BLOOD UREA NITROGEN 6 mg/dL (7-18); CALCIUM 8.4 mg/dL (8.5-10.1); CARBON DIOXIDE 32.7 mmol/L (21-32); CHLORIDE 98 mmol/L (98-107); COR CA(FOR HYPOALB) 9.9 mg/dL (8.5-10.1); CREATININE 0.52 mg/dL (0.55-1.02); SODIUM 133 mmol/L (136-145); TOTAL PROTEIN 6.4 g/dL (6.4-8.2); eGFR BLACK RACES > 60 (>60); eGFR NON BLACK RACES > 60 (>60)
[2017-12-10] MEDS: NS 1000 ML 1,000 ML IV SCH ×3 (06:29→18:11)
[2017-12-10] MEDS: ZOSYN VIAL 3.375 GM 3.375 GM in NS 100 ML IV + SPIKE MINIBAG* 100 ML IV SCH ×3 (06:30→21:06)
[2017-12-10] MEDS: D5 1/2 NS 1000 ML 1,000 ML IV SCH ×4 (06:31→23:48)
[2017-12-10] MEDS: PEPCID 20 MG IV PREMIX* 20 MG/50 ML BAG IV SCH ×2 (08:45→21:06)
[2017-12-10] MEDS: LEVAQUIN PREMIX IV 750 MG 750 MG/150 ML BAG IV SCH (08:45)
[2017-12-10] MEDS: LOVENOX INJ 30 MG SYR SC SCH ×2 (08:46→21:06)
[2017-12-10] MEDS: SILVADENE TOP SCH ×2 (09:29→21:06)
[2017-12-10] MEDS: PERCOCET TAB 5/325 MG PO PRN (09:29)
[2017-12-10] MEDS: NICOTINE PATCH TD SCH (11:15)
[2017-12-10] MEDS: DIFLUCAN PO SCH (11:15)
[2017-12-10] MEDS: FLAGYL TAB 500 MG PO SCH ×2 (11:15→21:05)
--- NOTE | 2017-12-10 11:53 | PCM.PROG ---
Progress Note - Subjective Subjective: P/O day 3 Diagnostic laparoscopy , exploratory laparatomy , cholecystectomy , CBD exploration , placement of T-T and cholangiogram for acute calculus cholecystitis with hydrops of the GB partially eroding into the CBD and causing cholangitis ; cloudy bile and sludge in the CBD.. much better today , OOB ambulatory and tolerating diet well . Lab work normal , Pt is afebrile . bile and GB culture are positive for Staph aureus . no NICK drainage and clear bile in the T-T bag .. - Past Medical Family Social History Past Med/Fam/Surg Hx: No changes since H&P Allergies: Allergies latex Allergy (Verified 12/06/17 17:53) strawberry Allergy (Verified 12/06/17 17:53) venlafaxine [From Effexor] Allergy (Verified 12/06/17 17:53) - Review of Systems ROS: No change since H&P - Vital Signs and I&O's Vital Signs: Temperature 98.6 F Pulse Rate [Right] 101 Pulse Rate 120 Respiratory Rate 13 Blood Pressure [Left Arm] 129/81 Blood Pressure 137/86 O2 Sat by Pulse Oximetry 100 Intake and Output: Intake & Output 12/07/17 12/08/17 12/09/17 12/10/17 11:59 11:59 11:59 11:59 Intake Total 50 2132 3190 5331 Output Total 2830 1080 2360 Balance 50 -698 2110 2971 - Physical Exam Oriented: Normal Eyes: Normal Ear: Normal Nose: Normal Throat: Normal Respiratory: Normal Cardiovascular: Tachycardia : Normal Auscultation: Bowel Sounds: Normal Tenderness: RUQ, Epigastric, Other (soft abdomen BS+..T-T bag is draing about 200 cc..no bile in NICK drain ) Skin: Normal Musculoskeletal: Normal Psychiatric: Anxiety Mood Description: Calm Speech Pattern: Clear, Appropriate - Laboratory and Diagnostics Result Diagrams: 12/10/17 05:51 12/10/17 05:51 Labs: 12/07/17 12:50 Gallbladder Gram Stain - Final 12/07/17 12:50 Gallbladder Wound Culture - Final Staphylococcus Aureus 12/07/17 12:50 Abdomen Gram Stain - Final 12/07/17 12:50 Abdomen Wound Culture - Final Staphylococcus Aureus 12/07/17 08:55 Urine,Random Urine Culture - Final Laboratory WBC 5.3 X10^3/uL (3.6-10.0) 12/10/17 05:51 RBC 3.22 X10^6/uL (3.5-5.4) L 12/10/17 05:51 Hgb 9.4 g/dL (12.0-16.0) L 12/10/17 05:51 Hct 27.6 % (36.0-47.0) L 12/10/17 05:51 MCV 85.8 fL (80.0-100.0) 12/10/17 05:51 MCH 29.1 pg (27.0-34.0) 12/10/17 05:51 MCHC 33.9 g/dL (33.0-35.0) 12/10/17 05:51 RDW 13.9 % (11.6-16.5) 12/10/17 05:51 Plt Count 189 X10^3/uL (150.0-450.0) 12/10/17 05:51 MPV 8.3 fL (7.4-11.0) 12/10/17 05:51 Neut % 67.9 % (42.0-75.0) 12/10/17 05:51 Lymph % 16.8 % (21.0-51.0) L 12/10/17 05:51 [place] % 13.2 % (0.0-13.0) H 12/10/17 05:51 Eos % 1.8 % (0.9-2.9) 12/10/17 05:51 Baso % 0.3 % (0.2-1.0) 12/10/17 05:51 Neut # 3.6 x10^3/uL (2.2-4.8) 12/10/17 05:51 Lymph # 0.9 X10^3/uL (1.3-2.9) L 12/10/17 05:51 [place] # 0.7 x10^3/uL (0.3-0.8) 12/10/17 05:51 Eos # 0.1 x10^3/uL (0.0-0.2) 12/10/17 05:51 Baso # 0.0 X10^3/uL (0.0-0.1) 01/29/18 05:51 Absolute Nucleated RBC 0.0 /100WBC 12/10/17 05:51 D-Dimer 630 ng/mL (0-400) H* 12/06/17 18:00 Sodium 133 mmol/L (136-145) L 12/10/17 05:51 Corrected Sodium TNP 12/10/17 05:51 Potassium 3.7 mmol/L (3.5-5.1) 12/10/17 05:51 Chloride 98 mmol/L (98-107) 12/10/17 05:51 Carbon Dioxide 32.7 mmol/L (21-32) H 12/10/17 05:51 BUN 6 mg/dL (7-18) L 12/10/17 05:51 Creatinine 0.52 mg/dL (0.55-1.02) L 12/10/17 05:51 Est GFR (MDRD) Af Amer > 60 (>60) 12/10/17 05:51 Est GFR (MDRD) Non-Af > 60 (>60) 12/10/17 05:51 Glucose 110 mg/dL (65-99) H 12/10/17 05:51 Calcium 8.4 mg/dL (8.5-10.1) L 12/10/17 05:51 Corrected Calcium 9.9 mg/dL (8.5-10.1) 12/10/17 05:51 Total Bilirubin 0.30 mg/dL (0.2-1.0) 12/10/17 05:51 AST 30 Units/L (15-37) 12/10/17 05:51 ALT 87 Units/L (12-78) H 12/10/17 05:51 Alkaline Phosphatase 96 Units/L (46-116) 12/10/17 05:51 Creatine Kinase 55 Units/L (26-192) 12/06/17 18:00 CK-MB (CK-2) 1.3 ng/mL (0-4.0) 12/06/17 18:00 CK/CKMB % Calc 2.4 % (<4) 12/06/17 18:00 Troponin I < 0.02 ng/mL (0-1.5) 12/06/17 18:00 Total Protein 6.4 g/dL (6.4-8.2) 12/10/17 05:51 Albumin 2.1 g/dL (3.4-5.0) L 12/10/17 05:51 Globulin 4.3 g/dL (2.5-4.5) 12/10/17 05:51 Albumin/Globulin Ratio 0.5 Ratio (1.1-2.1) L 12/10/17 05:51 Amylase 40 Units/L (25-115) 12/07/17 05:56 Lipase 136 Units/L (73-393) 12/07/17 05:56 Specimen Type Random urine 12/07/17 08:55 Urine Color Dark yellow (YELLOW) 12/07/17 08:55 Urine Appearance Cloudy (CLEAR) 12/07/17 08:55 Urine pH 7.0 (5.0 - 8.0) 12/07/17 08:55 Ur Specific [place] 1.010 (1.000-1.030) 12/07/17 08:55 Urine Protein 2+ (NEGATIVE) 12/07/17 08:55 Urine Glucose (UA) Negative (NEGATIVE) 12/07/17 08:55 Urine Ketones Negative (NEGATIVE) 12/07/17 08:55 Urine Occult Blood 2+ (NEGATIVE) 12/07/17 08:55 Urine Nitrite Positive (NEGATIVE) 12/07/17 08:55 Urine Bilirubin Negative (NEGATIVE) 12/07/17 08:55 Urine Urobilinogen Normal (NORMAL) 12/07/17 08:55 Ur Leukocyte Esterase 3+ (NEGATIVE) 12/07/17 08:55 Urine RBC 10-20 /HPF (NEGATIVE) 12/07/17 08:55 Urine WBC 30-50 /HPF (NEGATIVE) 12/07/17 08:55 Ur Squamous Epith Cells Few /HPF (NEGATIVE) 12/07/17 08:55 Urine Bacteria 1+ /HPF (NEGATIVE) 12/07/17 08:55 Urine Trichomonas Few /HPF (NEGATIVE) 12/07/17 08:55 Ur Culture Indicated? Yes/culture set up 12/07/17 08:55 Tissue Pathology To follow 12/07/17 13:43 - Plan (1) Acute suppurative cholecystitis Status: Acute (2) Acute hydrops of gallbladder Status: Acute Plan: to have T-T collecting bag available from [employer] , have visiting nurse. and possible D/S in am . (3) Acute cholangitis due to calculus of bile duct with obstruction Status: Acute Plan: on IV ATB ,IVF ,. start on low fat diet. OOB , incintive spirometer , DVT prophylaxis. prvide Pt with T-T collecting bag from [facility] and D/C in am
[2017-12-10] MEDS: BENADRYL CAP 50 MG PO PRN ×2 (16:20→23:00)
[2017-12-10] MEDS: PHENERGAN INJ 25 MG IV PRN (16:20)
[2017-12-10] MEDS: NORCO 5/325 MG TAB PO PRN ×2 (16:20→22:30)
[2017-12-10] MEDS: CHECK PATCH XX SCH (21:05)
[2017-12-10] MEDS: COLACE CAP 100 MG PO SCH (21:05)
[2017-12-10] MEDS: MILK OF MAGNESIA PO SCH (21:06)
[2017-12-11] MEDS: DEMEROL INJ IVP PRN ×6 (02:00→23:44)
[2017-12-11] MEDS: NS 1000 ML 1,000 ML IV SCH ×3 (02:36→18:07)
[2017-12-11] MEDS: NORCO 5/325 MG TAB PO PRN ×4 (02:38→21:30)
[2017-12-11] MEDS: D5 1/2 NS 1000 ML 1,000 ML IV SCH ×4 (04:19→23:36)
[2017-12-11] MEDS: ZOSYN VIAL 3.375 GM 3.375 GM in NS 100 ML IV + SPIKE MINIBAG* 100 ML IV SCH ×3 (05:24→21:29)
[2017-12-11 06:35] LABS: BASOPHILS % (AUTO) 0.3 % (0.2-1.0); EOSINOPHILS # (AUTO) 0.1 x10^3/uL (0.0-0.2); EOSINOPHILS % (AUTO) 2.6 % (0.9-2.9); HEMATOCRIT 25.8 % (36.0-47.0); HEMOGLOBIN 8.8 g/dL (12.0-16.0); MEAN CORPUSCULAR HEMOGLOBIN 29.2 pg (27.0-34.0); MEAN CORPUSCULAR VOLUME 85.9 fL (80.0-100.0); MONOCYTES # (AUTO) 0.5 x10^3/uL (0.3-0.8); MONOCYTES % (AUTO) 14.5 % (0.0-13.0); NEUTROPHILS # (AUTO) 2.1 x10^3/uL (2.2-4.8); NEUTROPHILS % (AUTO) 55.6 % (42.0-75.0); PLATELET COUNT 220 X10^3/uL (150.0-450.0); RED BLOOD COUNT 3.01 X10^6/uL (3.5-5.4); RED CELL DISTRIBUTION WIDTH 13.9 % (11.6-16.5); WHITE BLOOD COUNT 3.7 X10^3/uL (3.6-10.0)
--- NOTE | 2017-12-11 06:49 | RAD ---
HISTORY: Chest pain Study: Chest AP portable Comparison: 12/06/2017 Findings: The heart is within normal limits in size. The meeta are normal. The lung gabriel are clear. No pleural effusions are identified. The bony thorax is unremarkable. IMPRESSION: No significant abnormality identified Reported By:
[2017-12-11 06:50] LABS: ALANINE AMINOTRANSFERASE 60 Units/L (12-78); ALBUMIN 2.2 g/dL (3.4-5.0); ALKALINE PHOSPHATASE 82 Units/L (46-116); ASPARTATE AMINO TRANSFERASE 20 Units/L (15-37); BLOOD UREA NITROGEN 5 mg/dL (7-18); CALCIUM 8.1 mg/dL (8.5-10.1); CARBON DIOXIDE 29.5 mmol/L (21-32); CHLORIDE 101 mmol/L (98-107); COR CA(FOR HYPOALB) 9.5 mg/dL (8.5-10.1); COR NA(FOR HYPERGLY) 138 mmol/L (136-145); CREATININE 0.49 mg/dL (0.55-1.02); SODIUM 138 mmol/L (136-145); TOTAL PROTEIN 6.3 g/dL (6.4-8.2); eGFR BLACK RACES > 60 (>60); eGFR NON BLACK RACES > 60 (>60)
[2017-12-11] MEDS ORDERED: POTASSIUM CHLORIDE LIQ 20 MEQ UDC PO PRN (08:15)
[2017-12-11] MEDS ORDERED: K-RIDER 10 MEQ/NS 100 ML 10 MEQ/100 ML BAG IV PRN (08:15)
[2017-12-11] MEDS ORDERED: POTASSIUM CHL 60 MEQ/NS 0.45% 500 ML IV PRN (08:15)
[2017-12-11] MEDS ORDERED: K-LYTE EFFERVESCENT PO PRN (08:15)
[2017-12-11] MEDS ORDERED: POTASSIUM CHL 40 MEQ/NS 0.45% 500 ML IV PRN (08:15)
[2017-12-11] MEDS ORDERED: MAG-OX TAB PO PRN (08:15)
[2017-12-11] MEDS ORDERED: MAGNESIUM SULFATE 1 GM/100 mL PREMIX 1 GM/100 ML BAG IV PRN (08:15)
[2017-12-11] MEDS ORDERED: ROBINUL ONE (08:51)
[2017-12-11] MEDS: PEPCID 20 MG IV PREMIX* 20 MG/50 ML BAG IV SCH ×2 (09:03→21:15)
[2017-12-11] MEDS: NICOTINE PATCH TD SCH (09:03)
[2017-12-11] MEDS: LEVAQUIN PREMIX IV 750 MG 750 MG/150 ML BAG IV SCH (09:04)
[2017-12-11] MEDS: SILVADENE TOP SCH ×2 (09:05→21:15)
[2017-12-11] MEDS: DIFLUCAN PO SCH (09:05)
[2017-12-11] MEDS: CHECK PATCH XX SCH ×2 (09:06→23:35)
[2017-12-11] MEDS: FLAGYL TAB 500 MG PO SCH ×2 (09:06→21:25)
[2017-12-11] MEDS: LOVENOX INJ 30 MG SYR SC SCH ×2 (10:45→21:15)
[2017-12-11] MEDS ORDERED: DIFLUCAN PO SCH (11:00)
[2017-12-11] MEDS: ZOVIRAX TOP SCH ×2 (11:26→17:30)
--- NOTE | 2017-12-11 11:53 | PCM.PROG ---
Progress Note - Progress Note for Day of Date: 12/11/17 - Subjective Subjective: P/O day 4 Diagnostic laparoscopy , exploratory laparatomy , cholecystectomy , CBD exploration , placement of T-T and cholangiogram for acute calculus cholecystitis with hydrops of the GB partially eroding into the CBD and causing cholangitis ; cloudy bile and sludge in the CBD.. much better today , OOB ambulatory and tolerating diet well . Lab work normal , Pt is afebrile . bile and GB culture are positive for Staph aureus . no NICK drainage and clear bile in the T-T bag .. - Past Medical Family Social History Past Med/Fam/Surg Hx: No changes since H&P Allergies: Allergies latex Allergy (Verified 12/06/17 17:53) strawberry Allergy (Verified 12/06/17 17:53) venlafaxine [From Effexor] Allergy (Verified 12/06/17 17:53) - Review of Systems ROS: No change since H&P - Vital Signs and I&O's Vital Signs: Temperature 98.4 F Pulse Rate [Right] 97 Pulse Rate 120 Respiratory Rate 37 Blood Pressure [Left Arm] 148/84 Blood Pressure 137/86 O2 Sat by Pulse Oximetry 100 Intake and Output: Intake & Output 12/08/17 12/09/17 12/10/17 12/11/17 11:59 11:59 11:59 11:59 Intake Total 2132 3190 5331 3592 Output Total 2830 1080 2360 2665 Balance -698 2110 2971 927 - Physical Exam Oriented: Normal Eyes: Normal Ear: Normal Nose: Normal Throat: Normal Respiratory: Normal Cardiovascular: Tachycardia : Normal Auscultation: Bowel Sounds: Normal Tenderness: RUQ, Epigastric, Other (soft abdomen BS+..T-T bag is draing about 200 cc..no bile in NICK drain .dressing was changed , no infection or drainage ) Skin: Normal Musculoskeletal: Normal Psychiatric: Anxiety Mood Description: Calm Speech Pattern: Clear, Appropriate - Laboratory and Diagnostics Result Diagrams: 12/11/17 05:54 12/11/17 05:54 Labs: 12/09/17 00:10 Blood Blood Culture - Preliminary 12/07/17 12:50 Gallbladder Gram Stain - Final 12/07/17 12:50 Gallbladder Wound Culture - Final Staphylococcus Aureus 12/07/17 12:50 Abdomen Gram Stain - Final 12/07/17 12:50 Abdomen Wound Culture - Final Staphylococcus Aureus 12/07/17 08:55 Urine,Random Urine Culture - Final Laboratory WBC 3.7 X10^3/uL (3.6-10.0) 12/11/17 05:54 RBC 3.01 X10^6/uL (3.5-5.4) L 12/11/17 05:54 Hgb 8.8 g/dL (12.0-16.0) L 12/11/17 05:54 Hct 25.8 % (36.0-47.0) L 12/11/17 05:54 MCV 85.9 fL (80.0-100.0) 12/11/17 05:54 MCH 29.2 pg (27.0-34.0) 12/11/17 05:54 MCHC 34.0 g/dL (33.0-35.0) 12/11/17 05:54 RDW 13.9 % (11.6-16.5) 12/11/17 05:54 Plt Count 220 X10^3/uL (150.0-450.0) 12/11/17 05:54 MPV 8.0 fL (7.4-11.0) 12/11/17 05:54 Neut % 55.6 % (42.0-75.0) 12/11/17 05:54 Lymph % 27.0 % (21.0-51.0) 12/11/17 05:54 [place] % 14.5 % (0.0-13.0) H 12/11/17 05:54 Eos % 2.6 % (0.9-2.9) 12/11/17 05:54 Baso % 0.3 % (0.2-1.0) 12/11/17 05:54 Neut # 2.1 x10^3/uL (2.2-4.8) L 12/11/17 05:54 Lymph # 1.0 X10^3/uL (1.3-2.9) L 12/11/17 05:54 [place] # 0.5 x10^3/uL (0.3-0.8) 12/11/17 05:54 Eos # 0.1 x10^3/uL (0.0-0.2) 12/11/17 05:54 Baso # 0.0 X10^3/uL (0.0-0.1) 12/11/17 05:54 Absolute Nucleated RBC 0.1 /100WBC 12/11/17 05:54 D-Dimer 630 ng/mL (0-400) H* 12/06/17 18:00 Sodium 138 mmol/L (136-145) 12/11/17 05:54 Corrected Sodium 138 mmol/L (136-145) 12/11/17 05:54 Potassium 3.2 mmol/L (3.5-5.1) L 12/11/17 05:54 Chloride 101 mmol/L (98-107) 12/11/17 05:54 Carbon Dioxide 29.5 mmol/L (21-32) 12/11/17 05:54 BUN 5 mg/dL (7-18) L 12/11/17 05:54 Creatinine 0.49 mg/dL (0.55-1.02) L 12/11/17 05:54 Est GFR (MDRD) Af Amer > 60 (>60) 12/11/17 05:54 Est GFR (MDRD) Non-Af > 60 (>60) 12/11/17 05:54 Glucose 113 mg/dL (65-99) H 12/11/17 05:54 Calcium 8.1 mg/dL (8.5-10.1) L 12/11/17 05:54 Corrected Calcium 9.5 mg/dL (8.5-10.1) 12/11/17 05:54 Magnesium 2.0 mg/dL (1.7-2.9) 12/11/17 05:54 Total Bilirubin 0.20 mg/dL (0.2-1.0) 12/11/17 05:54 AST 20 Units/L (15-37) 12/11/17 05:54 ALT 60 Units/L (12-78) 12/11/17 05:54 Alkaline Phosphatase 82 Units/L (46-116) 12/11/17 05:54 Creatine Kinase 55 Units/L (26-192) 12/06/17 18:00 CK-MB (CK-2) 1.3 ng/mL (0-4.0) 12/06/17 18:00 CK/CKMB % Calc 2.4 % (<4) 12/06/17 18:00 Troponin I < 0.02 ng/mL (0-1.5) 12/06/17 18:00 Total Protein 6.3 g/dL (6.4-8.2) L 12/11/17 05:54 Albumin 2.2 g/dL (3.4-5.0) L 12/11/17 05:54 Globulin 4.1 g/dL (2.5-4.5) 12/11/17 05:54 Albumin/Globulin Ratio 0.5 Ratio (1.1-2.1) L 12/11/17 05:54 Amylase 40 Units/L (25-115) 12/07/17 05:56 Lipase 136 Units/L (73-393) 12/07/17 05:56 Specimen Type Random urine 12/07/17 08:55 Urine Color Dark yellow (YELLOW) 12/07/17 08:55 Urine Appearance Cloudy (CLEAR) 12/07/17 08:55 Urine pH 7.0 (5.0 - 8.0) 12/07/17 08:55 Ur Specific [place] 1.010 (1.000-1.030) 12/07/17 08:55 Urine Protein 2+ (NEGATIVE) 12/07/17 08:55 Urine Glucose (UA) Negative (NEGATIVE) 12/07/17 08:55 Urine Ketones Negative (NEGATIVE) 12/07/17 08:55 Urine Occult Blood 2+ (NEGATIVE) 12/07/17 08:55 Urine Nitrite Positive (NEGATIVE) 12/07/17 08:55 Urine Bilirubin Negative (NEGATIVE) 12/07/17 08:55 Urine Urobilinogen Normal (NORMAL) 12/07/17 08:55 Ur Leukocyte Esterase 3+ (NEGATIVE) 12/07/17 08:55 Urine RBC 10-20 /HPF (NEGATIVE) 12/07/17 08:55 Urine WBC 30-50 /HPF (NEGATIVE) 12/07/17 08:55 Ur Squamous Epith Cells Few /HPF (NEGATIVE) 12/07/17 08:55 Urine Bacteria 1+ /HPF (NEGATIVE) 12/07/17 08:55 Urine Trichomonas Few /HPF (NEGATIVE) 12/07/17 08:55 Ur Culture Indicated? Yes/culture set up 12/07/17 08:55 Tissue Pathology To follow 12/07/17 13:43 - Plan (1) Acute suppurative cholecystitis Status: Acute (2) Acute hydrops of gallbladder Status: Acute Plan: to have T-T collecting bag available from [facility] , have visiting nurse. and possible D/S in am . (3) Acute cholangitis due to calculus of bile duct with obstruction Status: Acute Plan: on IV ATB ,IVF ,. start on low fat diet. OOB , incintive spirometer , DVT prophylaxis. prvide Pt with T-T collecting bag from [facility] and D/C . will follow in the office .
[2017-12-11] MEDS: PHENERGAN INJ 25 MG IV PRN (12:00)
[2017-12-11] MEDS: COLACE CAP 100 MG PO SCH (21:15)
[2017-12-11] MEDS: MILK OF MAGNESIA PO SCH (21:26)
[2017-12-12] MEDS: ZOVIRAX TOP SCH ×2 (02:11→09:04)
[2017-12-12] MEDS: NS 1000 ML 1,000 ML IV SCH (02:11)
[2017-12-12] MEDS: DEMEROL INJ IVP PRN ×2 (04:07→11:17)
[2017-12-12] MEDS: ZOSYN VIAL 3.375 GM 3.375 GM in NS 100 ML IV + SPIKE MINIBAG* 100 ML IV SCH ×2 (05:46→15:32)
[2017-12-12] MEDS: NORCO 5/325 MG TAB PO PRN ×2 (06:26→15:09)
[2017-12-12 06:33] LABS: BASOPHILS % (AUTO) 0.7 % (0.2-1.0); EOSINOPHILS # (AUTO) 0.1 x10^3/uL (0.0-0.2); EOSINOPHILS % (AUTO) 2.8 % (0.9-2.9); HEMATOCRIT 29.2 % (36.0-47.0); HEMOGLOBIN 9.9 g/dL (12.0-16.0); LYMPHOCYTES # (AUTO) 1.6 X10^3/uL (1.3-2.9); LYMPHOCYTES % (AUTO) 29.2 % (21.0-51.0); MEAN CORPUSCULAR HGB CONC 33.9 g/dL (33.0-35.0); MEAN CORPUSCULAR VOLUME 85.4 fL (80.0-100.0); MEAN PLATELET VOLUME 7.7 fL (7.4-11.0); MONOCYTES # (AUTO) 0.7 x10^3/uL (0.3-0.8); MONOCYTES % (AUTO) 12.9 % (0.0-13.0); NEUTROPHILS # (AUTO) 2.9 x10^3/uL (2.2-4.8); NEUTROPHILS % (AUTO) 54.4 % (42.0-75.0); PLATELET COUNT 270 X10^3/uL (150.0-450.0); RED BLOOD COUNT 3.42 X10^6/uL (3.5-5.4); RED CELL DISTRIBUTION WIDTH 13.9 % (11.6-16.5); WHITE BLOOD COUNT 5.4 X10^3/uL (3.6-10.0)
[2017-12-12 07:21] LABS: ALANINE AMINOTRANSFERASE 59 Units/L (12-78); ALBUMIN 2.4 g/dL (3.4-5.0); ALKALINE PHOSPHATASE 105 Units/L (46-116); ASPARTATE AMINO TRANSFERASE 35 Units/L (15-37); BLOOD UREA NITROGEN 5 mg/dL (7-18); CALCIUM 8.5 mg/dL (8.5-10.1); CARBON DIOXIDE 27.1 mmol/L (21-32); CHLORIDE 101 mmol/L (98-107); COR CA(FOR HYPOALB) 9.8 mg/dL (8.5-10.1); CREATININE 0.46 mg/dL (0.55-1.02); SODIUM 136 mmol/L (136-145); TOTAL PROTEIN 6.7 g/dL (6.4-8.2); eGFR BLACK RACES > 60 (>60); eGFR NON BLACK RACES > 60 (>60)
[2017-12-12] MEDS: NICOTINE PATCH TD SCH (08:49)
[2017-12-12] MEDS: PEPCID 20 MG IV PREMIX* 20 MG/50 ML BAG IV SCH (08:50)
[2017-12-12] MEDS: FLAGYL TAB 500 MG PO SCH (08:54)
[2017-12-12] MEDS: LOVENOX INJ 30 MG SYR SC SCH (09:00)
[2017-12-12] MEDS: SILVADENE TOP SCH (09:05)
[2017-12-12] MEDS: CHECK PATCH XX SCH (09:09)
[2017-12-12] MEDS: LEVAQUIN PREMIX IV 750 MG 750 MG/150 ML BAG IV SCH (10:05)
[2017-12-12] MEDS: DIFLUCAN PO SCH (11:13)
[2017-12-12 15:32] VITALS: BP 164/92
[2017-12-12] MEDS: D5 1/2 NS 1000 ML 1,000 ML IV SCH (15:33)
== END 2017-12-12 17:10 | disposition home or self-care (01) | DRG 415 ==
LOC: ER 17:58 → OBS 22:13 → ICU 12-07 14:52 → OBSVTOIN 12-07 14:52
PROVIDERS: ADMIT Internal Medicine; ATTEND Internal Medicine
PROC: BF13YZZ Fluoroscopy of Gallbladder and Bile Ducts using Other Contrast (ICD-10-PCS; 2017-12-07)
PROC: 0F9980Z Drainage of Common Bile Duct with Drainage Device, Via Natural or Artificial Opening Endoscopic (ICD-10-PCS; 2017-12-07)
PROC: 0FT40ZZ Resection of Gallbladder, Open Approach (ICD-10-PCS; principal; 2017-12-07 10:45)
PROC: 0FJ44ZZ Inspection of Gallbladder, Percutaneous Endoscopic Approach (ICD-10-PCS; 2017-12-07 10:45)
DX: K80.00 Calculus of gallbladder with acute cholecystitis without obstruction (principal); K80.33 Calculus of bile duct with acute cholangitis with obstruction; K82.1 Hydrops of gallbladder; R07.89 Other chest pain; R06.02 Shortness of breath; R10.84 Generalized abdominal pain; I25.10 Atherosclerotic heart disease of native coronary artery without angina pectoris; I10 Essential (primary) hypertension; B95.62 Methicillin resistant Staphylococcus aureus infection as the cause of diseases classified elsewhere
CPT/HCPCS: 36415; 71045; 71275; 76705; 80053; 81001; 82150; 82550; 82553; 83690; 83735; 84132; 84484; 85025; 85378; 87040; 87070; 87075; 87077; 87086; 87186; 87205; 93005; 93010; 94640; 96365; 96367; 96374; 96375; 99231; 99284; A4216; A4222; S0020; S0028; G0378; J0330; J1170; J1650; J1885; J1956; J2001; J2175; J2250; J2271; J2405; J2543; J2550; J2710; J2765; J3010; J3490; J7042; J7120

== ENCOUNTER → 2017-12-19 | Outpatient (CLI) | payer MEDICAID ==
[2017-12-12 15:32] VITALS: BP 164/92
[2017-12-19 11:37] LABS: BASOPHILS # (AUTO) 0.1 X10^3/uL (0.0-0.1); EOSINOPHILS # (AUTO) 0.2 x10^3/uL (0.0-0.2); EOSINOPHILS % (AUTO) 3.2 % (0.9-2.9); HEMATOCRIT 32.4 % (36.0-47.0); HEMOGLOBIN 10.7 g/dL (12.0-16.0); LYMPHOCYTES # (AUTO) 3.1 X10^3/uL (1.3-2.9); LYMPHOCYTES % (AUTO) 43.2 % (21.0-51.0); MEAN CORPUSCULAR HEMOGLOBIN 28.3 pg (27.0-34.0); MEAN CORPUSCULAR HGB CONC 33.1 g/dL (33.0-35.0); MEAN CORPUSCULAR VOLUME 85.6 fL (80.0-100.0); MEAN PLATELET VOLUME 8.2 fL (7.4-11.0); MONOCYTES # (AUTO) 0.4 x10^3/uL (0.3-0.8); MONOCYTES % (AUTO) 5.9 % (0.0-13.0); NEUTROPHILS # (AUTO) 3.4 x10^3/uL (2.2-4.8); NEUTROPHILS % (AUTO) 46.7 % (42.0-75.0); PLATELET COUNT 549 X10^3/uL (150.0-450.0); RED BLOOD COUNT 3.79 X10^6/uL (3.5-5.4); RED CELL DISTRIBUTION WIDTH 14.1 % (11.6-16.5); WHITE BLOOD COUNT 7.2 X10^3/uL (3.6-10.0)
[2017-12-19 11:48] LABS: ALANINE AMINOTRANSFERASE 58 Units/L (12-78); ALBUMIN 3.3 g/dL (3.4-5.0); ALKALINE PHOSPHATASE 107 Units/L (46-116); ASPARTATE AMINO TRANSFERASE 31 Units/L (15-37); BLOOD UREA NITROGEN 14 mg/dL (7-18); CALCIUM 8.9 mg/dL (8.5-10.1); CARBON DIOXIDE 30.5 mmol/L (21-32); CHLORIDE 102 mmol/L (98-107); COR CA(FOR HYPOALB) 9.5 mg/dL (8.5-10.1); CREATININE 0.73 mg/dL (0.55-1.02); SODIUM 138 mmol/L (136-145); TOTAL PROTEIN 7.6 g/dL (6.4-8.2); eGFR BLACK RACES > 60 (>60); eGFR NON BLACK RACES > 60 (>60)
== END ==
LOC: LAB 10:54
PROVIDERS: ATTEND Surgery
DX: K80.33 Calculus of bile duct with acute cholangitis with obstruction (principal); Z98.890 Other specified postprocedural states
CPT/HCPCS: 36415; 80053; 85025

== ENCOUNTER 2018-01-29 13:38 | Emergency (ER) | payer SELFPAY ==
[2018-01-29 13:48] VITALS: BP 126/84; BMI 19.3
--- NOTE | 2018-01-30 08:05 | RAD ---
HISTORY: Abdominal pain Study: T-Tube cholangiogram Comparison: None Technique: Contrast was injected into the patient's T2. A single spot film was obtained. Total fluoro scopy time 18.1 seconds Findings: There is good filling of a normal caliber biliary tree. No intraluminal filling defects are identifie d. There is free passage of contrast into the duodenum. IMPRESSION: No significant abnormality identified Reported By:
--- NOTE | 2018-02-11 16:53 | DR.GENAD ---
HPI - Complaint/Symptoms Chief Complaint:: "sent by doctor Markel to have a t tube removed from pt abdomen pt had galbladder removed in dec and it was put in" - Source History Provided: Patient - Mode of Arrival Mode of Arrival: Ambulatory - Timing Onset of Chief Complaint: 12/13/17 PMH - PMH Past Medical History: Yes Past Medical History: Anxiety, Arthritis, Asthma, Hypertension Past Surgical History: Yes Surgical History: Cholecystectomy, Tonsillectomy Past Surgical History Comment: tubal - Family History History of Family Medical Conditions: No - Social History Does patient currently use any type of tobacco product: Yes Have you used tobacco products in the last 12 months: Yes Type of Tobacco Use: Cigarettes How many years tobacco product used: 15 Does any household member use tobacco: No Alcohol Use: None Do you use any recreational Drugs:: Yes (weed) Lives With: Family Lives Where: Home - infectious screening In the last 2 months have you had wt loss of >10#?: NO Have you had fever, night sweats or hemotysis?: No Have you traveled outside the country in the last 6 months?: No Isolation: Standard PE - Vital Signs Vitals: Temperature 97 F Pulse Rate 115 Respiratory Rate 18 Blood Pressure [Left Arm] 164/92 Blood Pressure 126/84 O2 Sat by Pulse Oximetry 99 - Discharge Plan Disposition: 01 HOME, SELF-CARE Condition: Stable - Follow ups/Referrals Follow ups/Referrals: NFD,None [Primary Care Provider] - 3 days - Instructions Additional Instructions: PT IS TO FLU WITH DR. MARMOLEJO IN A WEEK COME BACK IF FEVER OR PAIN PERSIST CALL EARLIER OR COME TO THE ER AND PT IS TO CHANGE DRESSING DAILY,,BR
== END 2018-01-29 15:41 | disposition home or self-care (01) ==
LOC: ER 14:01
DX: Z48.03 Encounter for change or removal of drains (principal)
CPT/HCPCS: 74300; 99283